=== PATIENT | male | born 1960 | race Caucasian/White ===

== ENCOUNTER → 2016-09-20 | Day surgery (SDC) | payer OTHER ==
[~2016-09-20] MED LIST: ACETAMINOPHEN/HYDROcodone 325 MG/5 MG TAB ONE; BUPIVACAINE/EPINEPHRINE 0.25% PF 10 ML VIAL ONE; LACTATED RINGER'S 1,000 ML BAG IV ONE; MEPERIDINE HCL 25 MG/ML VIAL ONE; MIDAZOLAM HCL 2 MG/2 ML VIAL ONE; ONDANSETRON HCL 4 MG/2 ML VIAL IV PUSH ONE; PROPOFOL 200 MG/20 ML AMP IV ONE; SODIUM CHLORIDE 0.9% SOLN 1000 ML BTL ONE; ceFAZolin 2 GM PREMIX 50 ML ONE
--- NOTE | 2016-09-20 10:11 | TN ---
cc: DARVIN ANTONIO M.D. [facility] DATE OF SURGERY 09/20/2016 PREOPERATIVE DIAGNOSIS Bilateral inguinal hernia, right buttock epidermal inclusion cyst, recurrent umbilical hernia. PROCEDURE Open repair recurrent umbilical hernia with mesh. Laparoscopic repair bilateral inguinal hernia with mesh and excision of epidermal inclusion cyst right buttock. SURGEON Dr. Darvin Antonio ANESTHESIA General INDICATIONS This is a pleasant 55-year-old gentleman who has undergone bilateral hip and knee replacements and following his hip replacement on the right side, he has struggled with significant pain in the right groin that makes it difficult for him to put full weight on his right leg. He has had to stop his rehab. He has been found to have a small right inguinal hernia, but this was not felt to be the explanation for his pain. No other findings are identified by the orthopedist to explain his symptoms and therefore plans were made for operative repair of his inguinal hernias. He also has a recurrent umbilical incisional hernia as well as a 2-cm epidermal inclusion cyst on the right lateral buttock. INTRAOPERATIVE FINDINGS Recurrent umbilical incisional hernia with two areas of preperitoneal fatty tissue protruding through a defect less than 1 cm. This was primarily repaired and covered with onlay mesh. 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 A 2-cm cystic mass in the right lateral buttock consistent with epidermal inclusion cyst. Specimen sent to pathology. ESTIMATED BLOOD LOSS Less than 10 mL DESCRIPTION OF PROCEDURE IN DETAIL The patient was identified as Cirilo Richard, taken to the operating room and placed in the supine position. Sequential compression devices were placed on the bilateral lower extremities. Following induction of adequate general anesthesia, the patient's abdomen was prepped and draped in the usual sterile fashion with Betadine. A time-out procedure was performed. Following completion of time-out procedure to everyone's satisfaction within the room, a proposed infraumbilical small transverse incision made with a marking pen and local anesthetic was placed in and around the umbilicus. The incision was carried out with scalpel and the umbilical skin was lifted up off of the herniated preperitoneal fatty tissue which was protruding through two separate tiny defects less than 1 cm in size. This fatty tissue was incarcerated. It was able to be reduced. Attention was then turned to identification of the anterior rectus fascia on the left side. This was incised in its medial border with a scalpel allowing for development of a preperitoneal plane with the surgeon's finger directed towards the pubic symphysis. With the patient in slight Trendelenburg position, a preperitoneal dissecting balloon was placed in the preperitoneal space, its balloon inflated to insufflation to a level of 11 mmHg ensued. Two infraumbilical midline 5 mm trocars were then placed in the preperitoneal space under direct laparoscopic view after incision in the skin with a scalpel. Attention was turned first to the left side. Blunt dissection lateral posterior to the spermatic cord was performed. A small spermatic cord lipoma was retrieved from the inguinal canal and reduced into the preperitoneal space. The anteromedial surface of the spermatic cord examined. There was adherent peritoneum which was reduced to the base of the spermatic cord and doing so a small defect was created which was closed with a 0-PDS Endoloop. Attention was then turned towards getting a 4 x 6 inches piece of [employer] ProLite mesh with an anterolateral slit. This was placed around the spermatic cord and tacked in position with a capture device. It is important to note there was no evidence of direct or femoral hernia. The anterolateral slit was reapproximated lateral to the inferior gastric vessels and a tack was placed inferomedial and a 2 x 6 inches piece of ProLite mesh was then placed across the anterolateral slit and held in position with the capture device. A tack was placed superolateral, inferior medial and superior medial. Photographs were taken of the completed repair. Attention was then turned to the right side. Similar blunt dissection ensued. Blunt dissection lateral and posterior to the spermatic cords was performed. A spermatic cord lipoma was identified and reduced from the inguinal canal into the preperitoneal space. Adherent peritoneum was reduced to the base of spermatic cord. No evidence of direct or femoral hernia was identified. The 4 x 6 inches piece of Atrium ProLite mesh was cut with an anterolateral slit, placed around the spermatic cord and tacked into position as had been done on the left side. A 2 x 6 inches piece was placed across the anterolateral slit and held in position with the capture device placing tacks superolateral, inferomedial and superior medial. Care was taken to avoid tack placement on both sides inferior lateral to avoid cutaneous nerve injury. Photographs were taken of the completed repair. Remaining local anesthetic was placed in the preperitoneal space and trocars were removed under direct visualization. As a preperitoneal space was desufflated, inferolateral mesh was held against the abdominal wall. The infraumbilical trocars was removed. The anterior rectus fascial incision was closed with a running 2-0 Vicryl suture. The umbilical hernia defects were approximated with interrupted inverted 0-Prolene sutures. A 5 x 5 cm piece of ProLite mesh was placed in an onlay position, held in place in eight places with the 0-Ethibond sutures. The wound was irrigated with saline. There was no evidence of bleeding. The umbilicus was reformed with two interrupted 2-0 Vicryl sutures. 2-0 Vicryl was placed in the deep dermis and skin incisions were approximated with 4-0 Monocryl subcuticular sutures. Dressings were applied with Mastisol and inch brown Steri-Strips, gauze and Tegaderm were placed over the umbilicus. The patient tolerated this portion of the procedure without apparent complication. The patient was then placed in a oblique position with the low back and the right thigh held up with a pillow and a rolled sheet. This allowed for exposure of the right lateral buttock epidermal inclusion cyst. This area was prepped and draped in usual sterile fashion with Betadine. The proposed elliptical incision was made with a marking pen infiltrated local anesthetic. Incision was carried out with scalpel and the cystic mass, which extended about 2 cm deep into the subcutaneous fatty tissue, was excised from surrounding tissues and passed off the field for pathologic evaluation. The wound was irrigated copiously with saline. Small bleeding points were control with electrocautery. The wound was closed in two layers with 3-0 Vicryl and 4-0 Monocryl. A dry dressing was placed with a Tegaderm with Telfa pad. The patient tolerated procedure without apparent complication. Sponge, needle and instrument counts correct at the end of the case. MD JANICE Womack/GATITO /9:41 AM /9:53 AM
== END | disposition home or self-care (01) ==
LOC: ESDC 06:19
PROVIDERS: ATTEND Surgery Trauma Surgery
DX: K40.20 Bilateral inguinal hernia, without obstruction or gangrene, not specified as recurrent (principal); L72.0 Epidermal cyst; K42.9 Umbilical hernia without obstruction or gangrene
CPT/HCPCS: 00300; 00750; 00840; 11402; 49585; 49650; 88307; C1727; C1781; J0690; J2175; J2250; J2405; J3010; J7120; 88304